=== PATIENT | female | born 1995 | race Caucasian/White ===

== ENCOUNTER 2018-11-07 00:19 | Emergency (ER) | payer OTHER ==
[~2018-11-07] VITALS: Ht 157.5 cm; Wt 54.4 kg
[2018-11-07] MEDS ORDERED: LORAZEPAM INJ 2 MG/ML VIAL ONE (00:39)
--- NOTE | 2018-11-07 00:40 | NUR ---
BIB FRIEND FOR C/O PALPITATION.PT APPEARS ANXIOUS . PLACED ON A MONITOR ,VSS. WILL CONT TO MONITOR ,
[2018-11-07 00:59] LABS: APPEARANCE,URINE Clear (CLEAR); BILIRUBIN,URINE Negative (NEGATIVE); BLOOD, URINE Negative Ery/uL (NEGATIVE); COLOR,URINE Yellow (YELLOW); KETONES,URINE Negative (NEGATIVE); LEUKOCYTE ESTERASE ,URINE Negative (NEGATIVE); NITRITE, URINE Negative (NEGATIVE); PH,URINE 7.5 (5.0-8.0); PROTEIN,URINE Negative (NEGATIVE); UGLUCOSE Negative (NEGATIVE); UROBILINOGEN,URINE 0.2 EU/dL (0.2)
[2018-11-07] MEDS ORDERED: LORAZEPAM INJ 2 MG/ML VIAL IM ONE (01:00)
[2018-11-07 01:59] VITALS: BP 119/75
--- NOTE | 2018-11-07 01:59 | NUR ---
Patient discharged to home in stable condition. Written and verbal after care instructions given. Patient verbalizes understanding of instruction.
== END 2018-11-07 02:00 | disposition home or self-care (01) ==
LOC: ER 00:22
DX: F41.0 Panic disorder [episodic paroxysmal anxiety] (principal)
CPT/HCPCS: 71045; 81001; 84703; 93005; 96372; 99284; J2060; 81000-TC